=== PATIENT | female | born 1995 | race Caucasian/White ===

== ENCOUNTER 2017-11-06 07:02 | Emergency (ER) | payer OTHER ==
[2017-11-06 07:14] VITALS: BP 100/58
--- NOTE | 2017-11-06 07:46 | UC ---
Ear Complaint HPI - HPI Summary HPI Summary: Ears are plugged, states she has excessive ear wax and requests ear lavage, has been using peroxide drops for several days. - History of Current Complaint Chief Complaint: UCEar Stated Complaint: EAR PLUGGED Time Seen by Provider: 11/06/17 07:16 Hx Obtained From: Patient Hx Last Menstrual Period: 10/29/17 ?: No Onset/Duration: Gradual Onset, Lasting Weeks Severity Initially: Mild Severity Currently: Mild Pain Intensity: 4 Aggravating Factors: Nothing Alleviating Factors: Nothing - Allergies/Home Medications Allergies/Adverse Reactions: Allergies Allergy/AdvReac Type Severity Reaction Status Date / Time No Known Allergies Allergy Verified 11/06/17 07:14 PMH/Surg Hx/FS Hx/Imm Hx Previously Healthy: Yes - Surgical History Surgical History: None - Family History Known Family History: Positive: None, Other - no FH brain aneurysms or migraines - Social History Alcohol Use: Rare Substance Use Type: None Smoking Status (MU): Never Smoked Tobacco Review of Systems Constitutional: Negative ENT: Ear Ache Is Patient Immunocompromised?: No All Other Systems Reviewed And Are Negative: Yes Physical Exam Triage Information Reviewed: Yes Appearance: Well-Appearing, No Pain Distress Vital Signs: Initial Vital Signs Temp 98.2 F 11/06/17 07:10 Pulse 70 11/06/17 07:10 Resp 16 11/06/17 07:10 BP 100/58 11/06/17 07:10 Pulse Ox 98 11/06/17 07:10 Vital Signs Reviewed: Yes Eyes: Positive: Conjunctiva Clear ENT: Positive: Hearing grossly normal, Pharynx normal, Other - cerumen Neck: Positive: Supple, Nontender, No Lymphadenopathy Respiratory: Positive: Chest non-tender, Lungs clear, Normal breath sounds, No respiratory distress Cardiovascular: Positive: RRR, No Murmur, Pulses Normal Abdomen Description: Positive: Nontender Procedures - Additional Procedures Additional Procedures: lavage - initial - bilateral ear irrigation done with warm water and peroxide via butterfly catheter Ear Complaint Course/Dx - Course Course Of Treatment: ear irrigation done on both ears, patient tolerated procedure well - Differential Dx/Diagnosis Provider Diagnoses: ceerumen impaction Discharge - Sign-Out/Discharge Documenting (check all that apply): Post-Discharge Follow Up - Discharge Plan Condition: Good Disposition: HOME Patient Education Materials: Cerumen Impaction (ED) Referrals: No Primary Care Phys,NOPCP [Primary Care Provider] - - Billing Disposition and Condition Condition: GOOD Disposition: Home
== END 2017-11-06 07:48 | disposition home or self-care (01) ==
LOC: UCEAST 07:02
DX: H61.23 Impacted cerumen, bilateral (principal)
CPT/HCPCS: 99211; G0463